=== PATIENT | male | born 1965 | race Caucasian/White ===

== ENCOUNTER 2017-05-19 15:19 | Emergency (ER) | payer BC, OTHER ==
[2017-05-19] MEDS ORDERED: Aspirin Low Dose CHEW TAB* 81 MG PO ONE (17:38)
[2017-05-19 17:49] LABS: Hematocrit 41 % (42-52); Hemoglobin 14.1 g/dl (14.0-18.0); Mean Corpuscular HGB Conc 35 g/dl (31-36); Mean Corpuscular Hemoglobin 31 pg (27-31); Mean Corpuscular Volume 90 fL (80-94); Mean Platelet Volume 8 um3 (7.4-10.4); Red Blood Count 4.55 10^6/ul (4.0-5.4); Red Cell Distribution Width 13 % (10.5-15); White Blood Count 5.7 10^3/ul (3.5-10.8)
[2017-05-19 18:01] LABS: Albumin 4.2 g/dL (3.2-5.2); BUN/Creatinine Ratio 11.1 (8-20); Calcium 9.3 mg/dL (8.6-10.3); EGFR African American 128.2 (>60); EGFR Non-African American 99.7 (>60); Globulin 2.4 g/dL (2-4); Potassium 3.6 mmol/L (3.5-5.0); Total Bilirubin 1.1 mg/dL (0.2-1.0); Total Protein 6.6 g/dL (6.4-8.9)
[2017-05-19 18:03] LABS: Troponin I 0.01 ng/mL (<0.04)
--- NOTE | 2017-05-19 18:30 | RAD ---
Indication: Chest pressure for 6 weeks. History of atrial flutter and RIGHT bundle branch block. History of tobacco use. Comparison: June 08, 2012 chest radiograph and August 17, 2011 CT. Technique: Upright AP 1754 hours Report: Elevated lung volumes and both diffuse mild prominence of the interstitial markings and patchy rarefaction of the mid to upper lung zone interstitial markings. No focal pulmonary lesion, compelling alveolar consolidation, pleural effusion, pneumothorax. The heart, pulmonary vasculature, and mediastinal contours are unremarkable. IMPRESSION: Stigmata of obstructive lung disease. No acute pulmonary or cardiac process evident.
--- NOTE | 2017-05-19 18:57 | ED ---
Daniel Hinojosa Angela, scribed for French Rodriguez MD on 05/19/17 at 1803 . HPI Chest Pain - HPI Summary HPI Summary: This pt is a 51 y/o male presenting [place] [facility] c/o non-radiating chest pressure for 6 weeks. Pt reports the pressure is constant but the intensity is waxing and waning. Pt is currently on Singulair and using an inhaler. He states he has been using his inhaler more frequently. Pt denies SOB, fever, chills, nausea, vomiting. Pt had a stress test 5 years ago, was [place] [facility] and it revealed a RBBB, atrial flutter. Pt is a former smoker. - History of Current Complaint Chief Complaint: EDChestWallPain Time Seen by Provider: 05/19/17 17:36 Hx Obtained From: Patient Onset/Duration: Started Weeks Ago, Still Present Timing: Constant, Lasting Weeks Current Severity: Mild Pain Intensity: 3 Pain Scale Used: 0-10 Numeric Chest Pain Location: Diffuse Chest Pain Radiates: No Character: Pressure/Squeezing Aggravating Factor(s): Nothing Alleviating Factor(s): Nothing Associated Signs and Symptoms: Positive: Chest Pain - Allergy/Home Medications Home Medications: Home Medications Albuterol inh POWDER (NF) [Proair Respiclick] 2 puff INH Q4HR PRN 05/19/17 [ History Confirmed 05/19/17] Montelukast Sodium TAB* [Singulair TAB*] 10 mg PO DAILY 05/19/17 [History Confirmed 05/19/17] PMH/Surg Hx/FS Hx/Imm Hx Endocrine/Hematology History: Denies: Hx Diabetes Cardiovascular History: Reports: Hx Atrial Fibrillation - aflutter Denies: Hx Hypertension Respiratory History: Reports: Hx Asthma - Surgical History Surgery Procedure, Year, and Place: Appendectomy, tonsillectomy, septoplasty Infectious Disease History: No Infectious Disease History: Denies: Traveled Outside the [place] in Last 30 Days - Family History Known Family History: Positive: Cardiac Disease - Father and mother: coronary artery bypass grafts in their 70's - Social History Alcohol Use: Daily Substance Use Type: Reports: None Smoking Status (MU): Former Smoker Review of Systems Negative: Fever, Chills Cardiovascular: Other - chest pressure Negative: Shortness Of Breath Negative: Vomiting, Nausea All Other Systems Reviewed And Are Negative: Yes Physical Exam Triage Information Reviewed: Yes Vital Signs On Initial Exam: Initial Vitals Temp Pulse Resp BP Pulse Ox 98.3 F 83 18 142/89 99 05/19/17 15:23 05/19/17 15:23 05/19/17 15:23 05/19/17 15:23 05/19/17 15:23 Vital Signs Reviewed: Yes Appearance: Positive: Well-Appearing, Well-Nourished Skin: Positive: Warm, Skin Color Reflects Adequate Perfusion, Dry Head/Face: Positive: Normal Head/Face Inspection Eyes: Positive: Normal, EOMI ENT: Positive: Normal ENT inspection, Hearing grossly normal Respiratory/Lung Sounds: Positive: Clear to Auscultation, Breath Sounds Present Cardiovascular: Positive: Normal, RRR Musculoskeletal: Positive: Normal, Strength/ROM Intact Neurological: Positive: Normal, Sensory/Motor Intact, Alert, Oriented to Person Place, Time Psychiatric: Positive: Normal - [place] Coma Scale Coma Scale Total: 15 Diagnostics - Vital Signs Vital Signs Temp Pulse Resp BP Pulse Ox 05/19/17 17:42 100 05/19/17 17:07 74 13 100 05/19/17 15:23 98.3 F 83 18 142/89 99 - Laboratory Result Diagrams: 05/19/17 16:55 05/19/17 16:55 Lab Statement: Any lab studies that have been ordered have been reviewed, and results considered in the medical decision making process. - Radiology Chest XR Xray Interpretation: Positive (See Comments) - IMPRESSSION: Stigmata of obstructive lung disease. No acute pulmonary or cardiac process evident. ED physician has reviewed this radiology report and agrees. Radiology Interpretation Completed By: Radiologist - EKG 1629 Cardiac Rate: NL EKG Rhythm: Sinus Rhythm - at 70 bpm EKG Interpretation: RBBB. No acute ischemic changes. EKG Comparison: No Significant Change - from prior EKG done on 02/06/12. Chest Pain Course/Dx - Course Assessment/Plan: Pt is a 51 y/o male who presents with non-radiating chest pressure for 6 weeks. Blood work, chest XR, and EKG were obtainted. EKG shows NSR with no ischemic changes. Chest XR shows stigmata of obstructive lung disease. No acute pulmonary or cardiac process evident. In the ED course, the pt was given aspirin. Pt is feeling better. 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 - Diagnoses Provider Diagnoses: Atypical chest pain Discharge - Discharge Plan Condition: Stable Disposition: HOME Referrals: Pablo Cheatham MD [Primary Care Provider] - The documentation as recorded by the Daniel monroy Angela accurately reflects the service I personally performed and the decisions made by me, French Rodriguez MD.
[2017-05-19 19:04] VITALS: BP 120/73
== END 2017-05-19 19:05 | disposition home or self-care (01) ==
LOC: ED 15:19
DX: R07.89 Other chest pain (principal); I48.92 Unspecified atrial flutter; J45.909 Unspecified asthma, uncomplicated; Z87.891 Personal history of nicotine dependence
CPT/HCPCS: 36415; 71010; 80053; 83605; 83880; 84484; 85025; 85730; 93005; 99282; A9270-GY